=== PATIENT | male | born 1965 | race Caucasian/White ===

== ENCOUNTER 2025-04-03 08:01 | Observation (INO) ==
--- NOTE | 2025-02-27 11:33 | PAT Medication Instructions ---
Medication Instructions Date of Service February 27, 2025 Home Medications aspirin 81 mg tablet,delayed release (Flo Low Dose Aspirin) 81 mg PO HS carvedilol 6.25 mg tablet 6.25 mg PO BID clopidogrel 75 mg tablet 75 mg PO QAM febuxostat 80 mg tablet (Uloric) 80 mg PO QAM ramipril 5 mg capsule 5 mg PO QAM rosuvastatin 10 mg tablet 10 mg PO QPM empagliflozin 10 mg tablet (Jardiance) 10 mg PO QAM semaglutide 0.25 mg or 0.5 mg (2 mg/3 mL) subcutaneous pen injector (Ozempic) 2 mg subcut WK ASK your prescriber and surgeon aspirin 81 mg tablet,delayed release (Flo Low Dose Aspirin) 81 mg PO HS clopidogrel/plavix 75 mg tablet 75 mg PO QAM (From anesthesia perspective, clopidogrel/plavix is requested to be stopped 7 days before surgery. Please check if okay with doctor that prescribes this to you) STOP 7 days prior to surgery semaglutide 0.25 mg or 0.5 mg (2 mg/3 mL) subcutaneous pen injector (Ozempic) 2 mg subcut WK STOP taking 3 days before surgery empagliflozin 10 mg tablet (Jardiance) 10 mg PO QAM DO NOT take the morning of surgery ramipril 5 mg capsule 5 mg PO QAM Take morning of surgery With a small sip of water, OTHERWISE NOTHING TO EAT OR DRINK AFTER MIDNIGHT: carvedilol 6.25 mg tablet 6.25 mg PO BID febuxostat 80 mg tablet (Uloric) 80 mg PO QAM Take evening before surgery carvedilol 6.25 mg tablet 6.25 mg PO BID rosuvastatin 10 mg tablet 10 mg PO QPM Other Notes If you have any questions please call us at [phone] or [phone] or [phone] or [phone]
--- NOTE | 2025-03-05 08:45 | Anesthesiology Consultation ---
Date of Service March 05, 2025 Assessment & Plan (1) Encounter for pre-operative examination: - Check BSG DOS - Plavix/clopidogrel instructions: patient made aware that for neuraxial anesthesia, Plavix/Clopidogrel needs to be held 7 days prior to surgery. Patient voiced understanding/will check if okay with prescriber. - GLP-1 medication instructions: Patient informed by PAT to stop 7 days prior to surgery- voiced understanding. DOS 04/03. Advised last dose to be 03/23. - Infectious disease screening: Per assessment on 02/26/25- No known recent infectious disease contacts. Patient reports congestion + sore throat symptom onset 02/25/25. Patient reports that symptoms are almost entirely resolved. Symptom onset > 10 days prior to surgery. Patient advised to contact surgeon/prescriber if not at baseline prior to surgery. - Outpatient joint assessment: Pt currently scheduled for inpatient pathway. If surgeon requests review for outpatient joint pathway, patient is not a recommended candidate for outpatient joint program from anesthesia standpoint based on available information. - Cardiology visit 11/12/23: "No significant exertional chest pain at this time. No indication at this time for stress testing, unless symptomatic.. continue dual anti-platelet with aspirin and Plavix given multiple stent procedures and bypass surgery. Blood pressure elevated today- increase valsartan.." 18 month f/u recommended. Chart Review Chart Review: Acceptable Risk for Surgery and Patient seen in Pre Admission Testing Teaching & Discussion Pre-Anesthesia Teaching/Discussion Notes: Instructed NPO after midnight before surgery,except medications with 15 cc of water. Medication instructions provided according to the PAT guidelines. History Surgery Operation Date: 04/03/25 13:00 Proposed Procedures p Robotic Assisted Right Total Knee Arthroplasty - Ellis Yee DO Height/Weight Height: 6 ft 2 in Weight: 112.6 kg Allergies Allergy/AdvReac Type Severity Reaction Status Date / Time No Known Allergies Allergy Verified 02/26/25 08:09 Medications Home Medications Medication Instructions Recorded Confirmed Last Taken aspirin 81 mg tablet,delayed 81 mg PO HS 11/15/18 02/26/25 11/20/18 release (Flo Low Dose Aspirin) carvedilol 6.25 mg tablet 6.25 mg PO BID 11/15/18 02/26/25 11/21/18 clopidogrel 75 mg tablet 75 mg PO QAM 11/15/18 02/26/25 11/20/18 febuxostat 80 mg tablet (Uloric) 80 mg PO QAM 11/15/18 02/26/25 11/20/18 ramipril 5 mg capsule 5 mg PO QAM 11/15/18 02/26/25 11/20/18 rosuvastatin 10 mg tablet 10 mg PO QPM 11/15/18 02/26/25 11/20/18 empagliflozin 10 mg tablet 10 mg PO QAM 02/26/25 02/26/25 Unknown (Jardiance) semaglutide 0.25 mg or 0.5 mg (2 2 mg subcut WK 02/26/25 02/26/25 Unknown mg/3 mL) subcutaneous pen injector (Ozempic) Past Medical History Medical History Arthritis CAD (coronary artery disease) Stent x1 (~2014) CABG x1 (2015) Cancer BCC Cardiac arrest 2016 Chronic back pain Diabetes Hearing deficit "Mild" History of COVID-19 (2021) Resolved Hx of gout Hyperlipidemia Hypertension Myocardial Infarction [address] Romero Osteoarthritis Exercise / Class Metabolic Activity II 4-5 Yardwork/Stairs/Walk up hill Past Family History Family History Brother FHx: brain cancer, Onset Age: 26 Past Surgical History Surgical History H/O shoulder surgery Distal clavicle removal b/l History of cardiac cath ~2014 > stent 1 2016 History of carpal tunnel release of both wrists History of coronary artery bypass graft CABG x1 (2015) History of heart artery stent History of laminectomy Lumbar History of postoperative nausea and vomiting S/P inguinal hernia repair S/P Mohs surgery for basal cell carcinoma Past Anesthesia History No Hx of Anesthesia Complications and No Family Hx of Anesthesia Complications History of PONV No Hx of Motion Sickness and History of PONV (+ nausea) Social History Smoking Status: Former smoker tobacco type: cigarettes Do You Dip or Chew Tobacco: No Smoking End Date: Quit 24 years ago Hx Alcohol Use: Yes Alcohol type: beer alcohol intake frequency: a few times a week Hx Substance Use: No substance use type: does not use Review of Systems Patient denies chest pain, shortness of breath, dyspnea on exertion, fever, chills, cough, wheezing, palpitations. Physical Exam Vital Signs BP 133/81 P 80 TEMP 97.7 SP02 97%RA RESP 16 Physical Full cervical extension range of motion. Full TMJ range of motion. TMD > 3.5 finger breaths Mallampati Score II Dentition: intact, + crowns Lungs: clear throughout to auscultation Cardiac: regular rate and rhythm, no murmurs noted Spine: normal Carotid arteries: negative bruit Extremities: no LE edema Lab Results Anesthesia Preop Results Results Anesthesia Widget: WBC 6.76 K/ul (4.8-10.8) 03/05/25 Hgb 14.5 g/dl (14.0-18.0) 03/05/25 Hct 46.4 % (42.0-52.0) 03/05/25 Plt 231 K/uL (130-400) 03/05/25 Na 140 mmol/L (136-145) 03/05/25 K 4.6 mmol/L (3.5-5.1) 03/05/25 Cl 106 mmol/L (98-107) 03/05/25 CO2 29 mmol/L (21-32) 03/05/25 BUN 14 mg/dl (6-23) 03/05/25 Creat 0.98 mg/dl (0.6-1.4) 03/05/25 Glucose Level 97 mg/dl (70-99(Fasting)) 03/05/25 PT 10.3 Seconds (9.0-12.0) 03/05/25 PTT 29 Seconds (21-31) 03/05/25 INR 1.0 (0.9-1.1) 03/05/25 HA1c 6.0 % (4.5-5.6) H 03/05/25 Blood Type A Positive 03/05/25 Antibody Screen NEGATIVE 03/05/25 Testing Electrocardiogram Date: 03/05/25 NSR at 80bpm. NS STA. Chest X-Ray Date: 03/05/25 FINDINGS: There is prior CABG. There is mild cardiomegaly without pulmonary vascular congestion. No consolidation or pleural effusion. IMPRESSION: No acute findings. Echocardiogram Date: 10/03/24 EF 60%. No RWMA. RSVP 27mmhg. No significant valvular disease. Stress Test Date: 09/30/24 Type: exercise 11.5 METS. 88% MPHR. "Normal treadmill stress test. Patient had good exercise tolerance without provocation of anginal symptoms and without ECG changes."
--- NOTE | 2025-04-02 06:50 | History & Physical Report ---
Date of Service April 02, 2025 Assessment & Plan (1) Arthritis of right knee: We will proceed with a right total knee arthroplasty. Postoperatively, he will be started on aspirin and Plavix for DVT prophylaxis and kept overnight in the hospital for postop medical management. He plans to have the hospital set up with home health after discharge. History of Present Illness Chief Complaint: Osteoarthritis of the right knee. 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. He has been dealing with a several year history of worsening right knee pain. It really hurts him on the medial aspect of his knee. It hurts him to the point where he cannot walk by the end of the day. When he comes home, he has to put his leg up and put ice on his knee. He is having trouble sleeping at night. He has had several injections of his knee. The first injection was helpful, but subsequent injections were not as successful. MRI of the knee shows medial compartmental arthritis. After failing extensive conservative treatment, has elected to proceed with a right total knee arthroplasty. Allergies Allergy/AdvReac Type Severity Reaction Status Date / Time No Known Allergies Allergy Verified 02/26/25 08:09 Home Medications Medication Instructions Recorded Confirmed Type aspirin 81 mg tablet,delayed 81 mg PO HS 11/15/18 02/26/25 History release (Flo Low Dose Aspirin) carvedilol 6.25 mg tablet 6.25 mg PO BID 11/15/18 02/26/25 History clopidogrel 75 mg tablet 75 mg PO QAM 11/15/18 02/26/25 History febuxostat 80 mg tablet (Uloric) 80 mg PO QAM 11/15/18 02/26/25 History ramipril 5 mg capsule 5 mg PO QAM 11/15/18 02/26/25 History rosuvastatin 10 mg tablet 10 mg PO QPM 11/15/18 02/26/25 History empagliflozin 10 mg tablet 10 mg PO QAM 02/26/25 02/26/25 History (Jardiance) semaglutide 0.25 mg or 0.5 mg (2 2 mg subcut WK 02/26/25 02/26/25 History mg/3 mL) subcutaneous pen injector (Ozempic) Past Med/Surg History Problem List Arthritis of right knee Encounter for pre-operative examination Medical History CAD (coronary artery disease) Stent x1 (~2014) CABG x1 (2016) Arthritis Hx of gout Diabetes History of COVID-19 (2021) Resolved Chronic back pain Osteoarthritis Cancer BCC Hearing deficit "Mild" Cardiac arrest 2016 Myocardial Infarction [address] Romero Hypertension Hyperlipidemia Surgical History History of postoperative nausea and vomiting History of carpal tunnel release of both wrists H/O shoulder surgery Distal clavicle removal b/l History of laminectomy Lumbar S/P inguinal hernia repair S/P Mohs surgery for basal cell carcinoma History of heart artery stent History of coronary artery bypass graft CABG x1 (2015) History of cardiac cath ~2014 > stent 1 2016 Family History Brother FHx: brain cancer, Onset Age: 26 Social History Smoking Status: Former smoker Tobacco Type: Cigarettes Smoking End Date: Quit 24 years ago; Second Hand Exposure: No; Do You Dip or Chew Tobacco: No; Tobacco Cessation Education Requested by Patient: No Hx Alcohol Use: Yes Alcohol type: beer Hx Substance Use: No Preferred Language: Serbian Communication Ability: Effective 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 Physical Exam On physical exam of his right knee, he has tenderness palpation of the distal femoral condyle and over the joint line. Constitutional WD/WN, vitals as above Eyes PERRL, conjunctivae normal, anicteric sclerae ENMT external ear and nose normal, oropharynx normal Neck trachea midline, no thyromegaly Respiratory normal respiratory effort Cardiovascular RRR, no murmur, no edema Gastrointestinal (Abdomen) normal bowel sounds, soft, nontender, no hepatosplenomegaly Psychiatric A+Ox3, euthymic affect Results & Data Results & Data Laboratory Results . Diagnostic Findings . PG Care Time/CCT Total # of Minutes Spent Total Time Spent with Patient: Total time spent is greater than 50% in coordination of care (as documented) at patient's floor/unit and/or counseling patient: Coding Level of Care Code None Diagnoses Arthritis of right knee M17.11
[~2025-04-03 08:01] MED LIST: BUPIVACAINE 0.25% PF 30 ML VIAL ONE; BUPIVACAINE 0.5 % 5 MG/1 ML PF 10ML VIAL ONE; DEXAMETHASONE SOD INJ 4 MG/ML VIAL ONE
[2025-04-03] MEDS: LR 60ML/HR IV SCH (08:42)
[2025-04-03] MEDS ORDERED: PROPOFOL IV EMULSION 10 MG/ML 20 ML VIAL IV ONE ×2 (09:02→11:22)
[2025-04-03] MEDS ORDERED: MIDAZOLAM HCL 1 MG/ML 2ML VIAL ONE ×2 (09:02→13:00)
[2025-04-03] MEDS ORDERED: ONDANSETRON INJ 2 MG/ML 2 ML VIAL ONE (09:02)
[2025-04-03] MEDS: GABAPENTIN 900 MG DOSE PO SCH (09:02)
[2025-04-03] MEDS ORDERED: LIDOCAINE 2% 2 ML VIAL/AMP(20MG/ML) INFIL ONE (09:02)
[2025-04-03] MEDS: FAMOTIDINE 20 MG TAB PO SCH (09:03)
[2025-04-03] MEDS: ACETAMINOPHEN 500 MG TAB PO SCH ×2 (09:03→15:02)
[2025-04-03] MEDS: dexAMETHasone**PF** 10 MG/ML VIAL IV SCH (09:03)
[2025-04-03] MEDS ORDERED: PROMETHAZINE HCL 6.25 MG in SODIUM CHLORIDE 0.9% 50 ML IV PRN (09:06)
[2025-04-03] MEDS ORDERED: ONDANSETRON INJ 2 MG/ML 2 ML VIAL IV PRN ×2 (09:06→13:52)
[2025-04-03] MEDS ORDERED: ATROPINE SULFATE 0.1 MG/ML 10ML SYR IV PRN (09:06)
--- NOTE | 2025-04-03 09:19 | History & Physical Bridge Note ---
Date of Service April 03, 2025 History & Physical Bridge Note I have examined the patient, reviewed the History & Physical and in the interval since the performance of the History & Physical I have noted the following changes of clinical significance: no changes noted
[2025-04-03] MEDS: LR 500ML BOLUS, THEN 15ML/HR IV SCH (09:59)
[2025-04-03] MEDS: TRANEXAMIC ACID 1,000 MG **IV Pre-op IV SCH (10:00)
[2025-04-03] MEDS: ORTHO JOINT ANESTHETIC ONE (10:48)
[2025-04-03] MEDS: ROPIV 0.5% 246mg, Ketorolac 30mg, EPINEPHrine 0.5mg in NSS INFIL SCH (10:48)
[2025-04-03] MEDS ORDERED: PHENYLEPHRINE 100MCG/ML 5ML SYR ONE (11:13)
--- NOTE | 2025-04-03 11:19 | Operative Report ---
PG Post Operative Report Pre & Post Diagnosis Operation Date: 04/03/25 10:00 Pre-Op Diagnosis: Right Knee Osteoarthritis Post-Op Diagnosis: Right Knee Osteoarthritis I identified the patient and participated in the time-out.: Yes Procedure Operation Date: 04/03/25 10:00 Actual Procedures p Robotic Assisted Right Total Knee Arthroplasty(Right) - Ellis Yee DO Surgeon Ellis Yee DO Press Operator Assistant Abby Galindo PA-C Estimated Blood Loss 30 Findings Consistent with Post-Op Diagnosis Specimens Right femoral and tibial bone Description of Procedure Implants used: I used a [employer] total knee arthroplasty system with a size 11 standard PS femur, G tibia, and a size 10 CPS polyethylene bearing. All components were press-fit into place. Nakul arrived [facility] for the above procedure. He was seen in the preoperative holding area and the operative extremity was identified and signed. he was given a preoperative antibiotic, TXA, a spinal anesthetic and an adductor nerve block. He was taken back to the operating room and laid on the table in supine position. He was given basic sedation. The operative knee was then prepped and draped in sterile fashion. A timeout was done, and the patient and the operative extremity was properly identified. A midline incision was made directly over the patella. Dissection was taken down to the extensor mechanism. A medial parapatellar arthrotomy was used. The medial retinaculum was released and the fat pad was mostly excised. The knee was flexed and the ACL, PCL, and meniscus were removed. The alignment of the knee replacement was assisted with a [employer] robotic knee. The femoral array was pinned in the distal femur and the tibial array was pinned using a percutaneous technique in the upper shaft of the tibia. The robot was appropriately calibrated and the structure of the knee was mapped out. The components were then manipulated on the screen to account for any malalignment and to assist in gap balancing. Once I was happy with the placement of the components on the screen, a distal femoral cutting guide was b rought in place. The distal femur was then resected. The femur measured to be a size 11. A 4-in-1 cutting block was then put into place by the robot and 2 peg holes were drilled. The 4-in-1 cutting block was then impacted into place and anterior, posterior, and chamfer cuts were made. The cutting block was then brought down to the tibia and pinned into place. The proximal tibia was then resected. The posterior aspect of the knee was then opened up and any additional meniscus fragments and osteophytes were removed. The tibia measured to be a size G. The tibial plate was then placed in the appropriate rotation and the tibia was drilled and punched. Trial components were then placed. A size 10 CPS polyethylene insert was then trialed. The knee was brought through a full range of motion and felt to be stable. Trial components were then removed. The surrounding soft tissues were injected with 100 cc of an orthopedic pain control cocktail. All components were then press-fit into place. The final polyethylene insert was then snapped into place. The tourniquet was deflated. Hemostasis was obtained. A dilute betadyne lavage was then done for 3 minutes. The joint was then irrigated with normal saline solution. The medial parapatellar arthrotomy was then closed with #1 Vicryl suture. The skin was closed with 2-0 Vicryl, 3-0V lock suture, and [place] Zipline. A soft compressive dressing was placed. He was then transferred to a hospital bed and taken to the postanesthesia care unit in stable condition. He tolerated the procedure well. Abby Galindo PA-C, was present for the entire procedure. He was critical for patient positioning, prepping, draping, retraction exposure, wound closure and application of sterile dressing. I attest to the content of the Intraoperative Record and any orders documented therein. Any exceptions are noted below.
--- NOTE | 2025-04-03 12:22 | XRay Report ---
XR knee RT 1 or 2V routine CLINICAL HISTORY: Postoperative evaluation. COMPARISON: Right knee MRI August 01, 2024. Right knee radiographs February 24, 2025. FINDINGS: Alignment of the total right knee arthroplasty is anatomic. No periprosthetic fracture or unexpected radiopaque foreign body. IMPRESSION: Expected findings following total right knee arthroplasty. ACT 112: Negative or not required by law. Electronically signed by: Yo Pacheco M.D. 04/03/2025 12:20 PM
[2025-04-03] MEDS ORDERED: MAGNESIUM HYDROXIDE SUSP 30 ML UDC PO PRN (13:52)
[2025-04-03] MEDS ORDERED: METOCLOPRAMIDE HCL INJ 5 MG/ML 2 ML VIAL IV PRN (13:52)
[2025-04-03] MEDS ORDERED: PHARMACY GLYCEMIC MGMT CONSULT PRN (13:52)
[2025-04-03] MEDS ORDERED: NALOXONE HCL 0.4 MG/1 ML VIAL/CARP IV PRN (13:52)
[2025-04-03] MEDS ORDERED: diphenhydrAMINE Capsule 25 MG CAP PO PRN (13:52)
[2025-04-03] MEDS: SODIUM CHLORIDE 0.9% 1,000 ML IV SCH (14:24)
[2025-04-03] MEDS ORDERED: Nursing to Pharmacy Communication SCH (14:30)
[2025-04-03] MEDS ORDERED: GLUCOSE 40% GEL 15 GM TUBE PO PRN (14:30)
[2025-04-03] MEDS ORDERED: GLUCAGON FOR INJ 1 MG VIAL SQ PRN (14:30)
[2025-04-03] MEDS ORDERED: GLUCOSE 10 TAB/TUBE PO PRN (14:30)
[2025-04-03] MEDS ORDERED: CARBOHYDRATES FOR HYPOGLYCEMIA PO PRN (14:30)
[2025-04-03] MEDS ORDERED: DEXTROSE 50% 50 ML SYRINGE IV PRN (14:30)
--- NOTE | 2025-04-03 14:37 | Pharmacy Report ---
Pharmacy Glycemic Short Note 2 - Date of Service April 03, 2025 - Glycemic Short BSG Results (Last 24 hours): 04/03/25 04/03/25 11:55 14:00 POC Glucose 167 H 131 H OUTPATIENT ANTIDIABETIC REGIMEN: * empagliflozin 10mg PO daily * semaglutide 2mg SQ weekly HbA1c: 6% on 03-05-25 ASSESSMENT: * Alexi is a 59 year old male who was admitted 04/03 for a total knee arthroplasty (POD #0). Pharmacy was consulted for glycemic management postop. * Preop BSG was 167mg/dL and post op was 131mg/dL. It appears that he received at least 10mg iv dexamethasone preop. Since he is so well controlled at home (based on his HbA1c) and his postop BSG is in the goal range despite receiving dexamethasone, will dose insulin conservatively. * A weight based bolus insulin regimen with a stress of 1 was started and a Lantus scale (0,5, or 10 units depending on BSG) was added for HS. PLAN FOR INPATIENT GLYCEMIC CONTROL: * Hold outpatient diabetes medications * Basal insulin * Lantus scale at HS (0,5, or 10 units depending on BSG) * Bolus insulin * NovoLog per scale ACHS or Q6hrs while NPO * Goal Range: Low 120 mg/dL - High 150 mg/dL * Correction Factor: 40 mg/dL/unit * Nutritional / Prandial insulin per carb ratio of 1 unit per 15 grams CHO consumed
--- NOTE | 2025-04-03 14:42 | Anesthesiology Progress Note ---
Date of Service April 03, 2025 Anesthesia Post Procedure Vital Signs Vital Signs: Temp Pulse Pulse Resp BP Pulse Ox O2 Del Method 04/03/25 14:06 36.3 C L 75 14 127/82 97 Room Air 04/03/25 13:15 36.3 C L 80 19 126/74 97 Room Air 04/03/25 13:00 74 16 128/74 97 Room Air 04/03/25 12:45 74 18 129/81 96 Room Air 04/03/25 12:30 74 18 126/71 98 Room Air 04/03/25 12:20 84 15 130/76 98 Room Air 04/03/25 12:10 81 18 128/70 96 Room Air 04/03/25 12:00 82 16 127/78 94 Room Air 04/03/25 11:52 36.4 C L 90 18 126/73 95 Room Air 04/03/25 08:20 36.5 C 77 19 155/83 H 96 Room Air Transfer of Care Handoff Completed per policy Notes Mental Status: alert / awake / arousable Patient Amnestic to Procedure: Yes Nausea / Vomiting: adequately controlled Pain: adequately controlled Airway Patency, RR, SpO2: stable & adequate BP & HR: stable & adequate Hydration State: stable & adequate Neuraxial Anesthesia: was administered and sensory block is resolving Anesthetic Complications: no major complications apparent and Pt Satisfied with anesthetic care
[2025-04-03] MEDS: KETOROLAC TROMETHAMINE 15 MG/ML VIAL IV SCH (15:02)
[2025-04-03] MEDS: INSULIN ASPART PER UNIT CHARGE SC SCH (17:02)
[2025-04-03] MEDS: LANTUS PER UNIT CHARGE SC ONE (17:21)
[2025-04-03] MEDS: ASPIRIN 81 MG ECTAB PO SCH (20:55)
[2025-04-03] MEDS: ROSUVASTATIN CALCIUM 10 MG TAB PO SCH (20:55)
[2025-04-03] MEDS: DOCUSATE SODIUM 100 MG CAP PO SCH (20:56)
[2025-04-03] MEDS: SENNA 8.6 MG TAB PO SCH (20:56)
[2025-04-03] MEDS ORDERED: LANTUS PER UNIT CHARGE SC SCH (21:00)
[2025-04-04] MEDS: HYDROmorphone INJ 0.5 MG/0.5 ML SYR IV PRN (02:05)
--- NOTE | 2025-04-04 07:38 | Orthopedic Progress Note ---
Date of Service April 04, 2025 Assessment & Plan (1) Arthritis of right knee: Overall he is doing very well. He is not having much pain in the right knee. He will be seen by physical therapy today for ambulation and range of motion exercises. The nursing staff can change his dressing after physical therapy. He is on aspirin for DVT prophylaxis. He can be discharged to home later today. He will follow-up with orthopedics in 2 weeks. Monik Zhang was seen and examined at bedside this morning. Overall is doing very well. He is not having much pain in the right knee. He has been up and ambulating a little bit. He has no complaints.. Review of Systems All systems reviewed & are unremarkable except as noted in HPI & below. Physical Exam On physical exam of the right knee, the dressing is clean and dry. His leg is out in full extension. He has active dorsiflexion and plantarflexion of his right ankle.. Results & Data Results & Data Laboratory Results . Diagnostic Findings Postoperative x-rays of the right knee show the prosthesis to be in anatomic alignment without any evidence of fracture, dislocation, or loosening.. PG Care Time/CCT Total # of Minutes Spent Total Time Spent with Patient: Total time spent is greater than 50% in coordination of care (as documented) at patient's floor/unit and/or counseling patient: Coding Level of Care Code 12217 Post Operative Follow-Up Diagnoses Arthritis of right knee M17.11
[2025-04-04] MEDS: TAMSULOSIN HCL 0.4 MG CAP PO PRN (08:33)
[2025-04-04] MEDS: LANTUS PER UNIT CHARGE SC ONE (08:34)
[2025-04-04] MEDS: MULTIVITAMIN TAB PO SCH (08:34)
[2025-04-04] MEDS ORDERED: EMPAGLIFLOZIN 10 MG TAB PO SCH (09:00)
[2025-04-04] MEDS: FEBUXOSTAT 40 MG TABLET PO SCH (09:20)
[2025-04-04] MEDS: ENALAPRIL MALEATE 10 MG TAB PO SCH (09:20)
[2025-04-04] MEDS: CLOPIDOGREL BISULFATE 75 MG TAB PO SCH (10:01)
[2025-04-04 10:32] VITALS: BP 129/78; PULSE 84; RESP 14; TEMP 97.7; O2SAT 95
== END 2025-04-04 10:36 | disposition home or self-care (01) ==
LOC: ASU 08:01 → 3E 08:01